=== PATIENT | female | born 1985 | race Caucasian/White ===

== ENCOUNTER 2017-04-22 17:27 | Emergency (ER) | payer OTHER ==
[~2017-04-22] VITALS: Ht 157.5 cm; Wt 56.8 kg
[~2017-04-22 17:27] MED LIST: MEDR150D9 IM; OXYC1TAB24 PO; SCOP1PAT TD
[2017-04-22 17:33] VITALS: BP 113/67; PULSE 98; RESP 22; O2SAT 98
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
[2017-04-22 19:36] LABS: BASOPHILS % (AUTO) 0.2 % (0-3); EOSINOPHILS % (AUTO) 0.7 % (0-5); MONOCYTES % (AUTO) 6.7 % (4-12); Mean Corpuscular Hemoglobin 31.5 pg (27.0-35.0); Mean Corpuscular Volume 92.7 fL (81-100); NEUTROPHILS % (AUTO) 65.9 % (40-74); Platelet Count 317 bil/L (150-400)
[2017-04-22 20:05] LABS: Lipase 37 U/L (13-60)
[2017-04-22 20:33] VITALS: BP 105/72; PULSE 64; RESP 20; O2SAT 99
== END 2017-04-22 20:35 ==
LOC: SED 17:27
DX: S16.1XXA Strain of muscle, fascia and tendon at neck level, initial encounter (principal); S39.012A Strain of muscle, fascia and tendon of lower back, initial encounter; V48.5XXA Car driver injured in noncollision transport accident in traffic accident, initial encounter; Y93.9 Activity, unspecified; Y92.410 Unspecified street and highway as the place of occurrence of the external cause; Y99.8 Other external cause status; F43.10 Post-traumatic stress disorder, unspecified; F17.200 Nicotine dependence, unspecified, uncomplicated